=== PATIENT | male | born 1950 | race Caucasian/White ===

== ENCOUNTER → 2025-04-11 | Outpatient (CLI) | payer MEDICARE, BC ==
[~2025-04-11] MED LIST: PROHANCE 279.3MG/ML 15ML VIAL As Ordered ONE; PROHANCE 279.3MG/ML 5ML VIAL As Ordered ONE
== END ==
LOC: M RAD 12:02
PROVIDERS: ATTEND Otolaryngology Otolaryngic Allergy
DX: G31.9 Degenerative disease of nervous system, unspecified (principal); J32.0 Chronic maxillary sinusitis; J32.2 Chronic ethmoidal sinusitis; J32.1 Chronic frontal sinusitis; J32.3 Chronic sphenoidal sinusitis; R42 Dizziness and giddiness
CPT/HCPCS: 70553; A9576